=== PATIENT | male | born 1975 | race Caucasian/White ===

== ENCOUNTER 2024-09-18 05:31 | Emergency (ER) | payer OTHER, SELFPAY ==
--- NOTE | ~2024-09-18 | CT_ITS ---
EXAMINATION: CT abdomen pelvis w con DATE: 09/18/2024 06:33 INDICATION: Abdomen pain TECHNIQUE: Computed tomography (CT) of the abdomen and pelvis was performed with 100 cc Omnipaque 350 intravenous contrast. The dose-length product was 715.27 mGy-cm. Automated exposure control and iter ative reconstruction technique were employed. COMPARISON: None. FINDINGS: Lung bases unremarkable. Heart size normal. Fatty infiltration of the liver. The spleen, pa ncreas, adrenal glands and left kidney are unremarkable. There is a 4 mm right UVJ stone with mild hy dronephrosis. There is an asymmetric right renal nephrogram, consistent with obstruction. Punctate no nobstructing right renal stone. Gallbladder is present. Nonobstructive bowel gas pattern. Normal appe ndix. No abnormal pelvic masses or fluid collections. No significant vascular abnormality. No lymphad enopathy. Mild lumbar spondylosis. IMPRESSION: 1. Right UVJ stone measuring 4 mm with mild hydronephrosis. 2: Right nephrolithiasis. Reviewed, dictated and finalized at location A.
--- OUTSIDE RECORDS SUMMARY | 2024-09-18 05:33 | XMS_ITS | Clinical Summary ---
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 Assessment & Plan (07/28/2020 10:34 AM CDT): Continues to use regularly, mostly situational as he lives in house with chronic use Patient considering intensive outpatient Continue to encourage patient to engage with care to help with absence Encouraged patient to look for save housing in order to reduce risk of continued use or relapse Assessment & Plan (07/02/2020 9:32 AM CDT): Stable, improving Patient reports he no longer has desire to use amphetamines, methamphetamines are used due to availability Discussed with patient differences between physical, psychological dependence as well as patient habits and habitual use Discussed with patient beginning to identify habitual use, which triggers use and how to break cycle of habitual use Patient agreeable and will continue to monitor and work with recovery resources including group sessions at [facility] Assessment & Plan (06/30/2020 3:25 PM CDT): Stable, not well controlled Patient continues to regularly use amphetamines, lives in house for amphetamine use is present Encouraged patient to continue to work on cessation, possibly moving to clean living At this time patient is not ready to make complete change of final as commitment Will continue to monitor continue to address as available Assessment & Plan (06/11/2020 1:44 PM CDT): Not well controlled, continues to have regular use of amphetamines, and lives in housing that has regular use of methamphetamines Encouraged patient to look for new housing as well as consider other alternatives such as residential treatment program, at this time patient is not interested in residential treatment Will continue to support patient and evaluate for treatment options Patient is still in pre contemplative changed, decision to remain in program is mostly based upon outside implants, drug court, encouraged patient to continue to evaluate personal changes who will help self motivated to remain sober Assessment & Plan (05/28/2020 12:43 PM CDT): Not well controlled, continues to use several times per week, still places himself in situations that are high risk of use Patient is not started antidepressant and, encouraged patient to start medication in order to reduce cravings in better control mood which then may control amphetamine use disorder Will continue to monitor encourage counseling, as well as finding group sessions back and help support patient Encouraged patient to spend more time with sober friends who can help him with his goal of sobriety Assessment & Plan (05/18/2020 2:15 PM CDT): -patient currently in weekly counseling and group sessions through [facility] -will give trial of bupropion for depression -may require focused counseling regarding trigger and depression (started using after divorce); will follow-up with counselor to ensure patient has all appropriate resources Dysthymia 05/18/2020 Assessment & Plan (07/28/2020 10:35 AM CDT): Stable, well controlled on bupropion Continue therapy Assessment & Plan (07/02/2020 9:32 AM CDT): Stable, well controlled, patient stopped taking bupropion as he in on g depression Continue to monitor and encourage use of antidepressant if needed at future date Assessment & Plan (06/30/2020 3:25 PM CDT): Stable, improving though patient has mildly flat affect, patient is engaged in discussion Patient reports his mood is improving and feels better about himself while on bupropion 75 mg b.i.d. Assessment & Plan (06/11/2020 1:44 PM CDT): Patient reports that his mood is generally well Would like to continue with bupropion 75 mg b.i.d. Assessment & Plan (05/28/2020 12:44 PM CDT): Stable, not well controlled Discussed with patient that dysthymia may be related to amphetamine withdrawal as well as general dysthymia Bupropion started for depression Encouraged patient to start medication, described patient had to take it every day twice daily or have best affect Assessment & Plan (05/18/2020 2:17 PM CDT): Start bupropion for depression Immunizations Immunization Administration Dates Next Due Influenza, Unspecified 02/07/2020(Deferr ed: Patient Refused),02/07/2020(Deferred: Patient Refused),02/07/2020(Deferred: Patient Refused),02/07/2020(Deferred: Patient Refused),02/07/2020(Deferred: Patient Refused),02/06/2019(Deferred: Patient Refused),02/06/2019(Deferred: Patient Refused),02/06/2019(Deferred: Patient Refused),02/06/2019(Deferred: Patient Refused),02/06/2019(Deferred: Patient Refused) Pfizer SARS-CoV-2 Monovalent Vaccination (12+ Yrs) PURPLE 06/16/2020 Tdap 02/04/2020 Family History Medical History Relation Name Comments No Known Problems Father No Known Problems Mother Relation Name Status Comments Father Alive Mother Alive Social History Tobacco Use Types Packs/Day Years Used Date Smoking Tobacco: Every Day Cigarettes Smokeless Tobacco: Never Tobacco Cessation:Ready to Q uit: No; Counseling Given: Yes Alcohol Use Standard Drinks/Week Comments Not Currently 0 (1 standard drink = 0.6 oz pur e alcohol) PHQ-2 Answer Date Recorded PHQ-2 Total Score (If total score is 3 or more points, staff should administer the PHQ-9) 0 07/02/2020 Personal Safety Answer Date Recorded Getting School Help Needed Not on file 04/01 Sex and Gender Information Value Date Recorded Sex Assigned at Not on file Legal Sex Male 10:38 PM [employer] Gender Identity Not on file Sexual Orientation Not on file Obstetrics History Last Filed Vital Signs Vital Sign Reading Time Taken Comments Blood Pressure 118/74 07/02/2020 9:09 AM CDT Pulse 81 07/02/2020 9:09 AM CDT Temperature 36.4 C (97.6 F) 07/02/2020 9:09 AM CDT Respiratory Rate 18 05/14/2020 5:36 PM CDT Oxygen Saturation 98% 07/02/2020 9:09 AM CDT Inhaled Oxygen Concentration - - Weight 83.5 kg (184 lb) 07/02/2020 9:09 AM CDT Height 182.9 cm (6') 07/02/2020 9:09 AM CDT Body Mass Index 24.95 07/02/2020 9:09 AM CDT Plan of Treatment Health Maintenance Due Date Last Done Comments Colon Cancer Screening-Colonoscopy 1975 Hepatitis B Screening 02/19/1994 Regular Well Visit/Exam 18-64 02/19/1994 Pneumococcal vaccine <65 (1 of 2 - PCV) 02/19/1995 Depression Screening 07/02/2021 07/02/2020, 06/04/2020, 05/18/2020, Additional history exists Covid-19 Vaccine (2 - 2023-2 5 season) 2023 06/16/2020 Influenza Vaccine (#1) 2024 DTaP/Tdap/Td Vaccine (2 - Td or Tdap) 02/03/2030 02/04/2020 Hepatitis C Screening Completed 10/09/2019 Goals Goal Patient Goal Type Associated Problems Recent Progress Patient-Stated? Author Compliance with parole General No change( 021 9:53 AM CDT) No Aliyah Jordan Note: Pt reports being on parole and has been non compliant with stipulations. Pt will abstain from illicit drug use Housing General Yes Aliyah Jordan Note: I need to connect with someone that has a place. 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 Procedures Procedure Name Priority Date/Time Associated Diagnosis Comments HEPATITIS PANEL, ACUTE Add-On 10/09/2019 5:58 PM CDT from Last 3 Months or Most Recently Relevant to Health Maintenance Results * Hepatitis panel, acute (10/09/2019 5:58 PM CDT) Hep A IgM Nonreactive Nonreactive YESSI RITCHIE ([facility]K) Comment: Interpretive Data: If Hep A IgM Ab is reported as Equivocal, a new sample should be drawn in two weeks for testing. Current interpretive data was last revised on 19. Testing performed by: [address] [address] Hep B core IgM Nonreactive Nonreactive C ERNER CHAU ([place]) Comment: Interpretive Data If HepB Core IgM Ab is reported as Equivocal, a new sample should be drawn in two weeks for testing. Current interpretive data was last revised on 19. Testing performed by: [address] [address] Hep C Ab Nonreactive Nonreactive YESSI RITCHIE ([place]) Comment: Interpretive Data Nonreactive: Antibodies to HCV not detected. Does NOT exclude the possibility of recent exposure to HCV. Equivocal: Equivocal for HCV antibodies. Supplemental molecular testing will be automatically performed to determine infection status in accordance with current CDC screening recommendations. Reactive: Positive for HCV antibodies. This may represent current or past HCV infection. Supplemental molecular testing will be automatically performed to determine current infection status in accordance with current CDC screening recommendations. Interpretive data was last revised on 2019. Testing performed by: [address] [address] HepBsAg Nonreactive Nonreactive YESSI RITCHIE ([place]) Comment:Testing performed by : [address] [address] Blood specimen (specimen) 10/09/2019 5:58 PM CDT 10/10/2019 11:48 AM CDT us Daily Suarez MD LAB MICROBIOLOGY - GENERAL ORDERABLES Final Result YESSI RITCHIE ([place]) [address] [facility] [place] [address] from Last 3 Months or Most Recently Relevant to Health Maintenance Insurance [facility] Care Teams Retail Coverage Merchandiser Relationship Specialty Start Date End Date Gianni Olmstead MD [address] [place] [address] PCP - General Family Medicine 05/18/20 Keily Crump Software Test Engineer Addiction Medicine 05/14/20 Aliyah Jordan Software Test Engineer Addiction Medicine 05/14/20
--- OUTSIDE RECORDS SUMMARY | 2024-09-18 05:33 | XMS_ITS | Continuity of Care Document ---
Author Organization [facility] Address [address] [place] [address] [place] [address] Phone Care Team Providers Care Associate Creative Director Name Role Phone Clarence De MD Unavailable Unavailable Allergies, Adverse Reactions, Alerts Substance Reaction Status Criticality No Known Allergies Active No Inform ation Medications Medication Instructions Dosage Effective Dates (start - stop) Status Comments clonidine HCl 0.1 mg tablet take 1 tablet by oral route 2 times every day as needed 0.1 MG - Active PRN for with draw symptoms Procedures Procedure Date PREV VISIT, EST, AGE 18-39 PREV VISIT, NEW, AGE 18-39 Advance Directives Directive Yes / No Effective Date File Name No Information Encounters Encounter Description Practice Location Reason(s) For Visit Diagnoses Date Provider Providers Copied on Encounter PREV VISIT, EST, AGE 18-39 [facility], [address] [place], [place], [id number], [place] tel:[phone] [facility] Physical (chief complaint) Encntr for general adult medical exam w/o abnormal findings Santino Lima. [address], [address], [id number], [place]. tel:[phone] Referring Provider: Clarence De, [address], [place], [place], [id number]. tel:[phone] PREV VISIT, NEW, AGE 18-39 [facility], [address], [place], [place], [id number], [place] tel:[phone] [facility] Physical (chief complaint)a bdominal pain (chief complaint) Routine Medical ExamRoutine Medical Exam Santino Lima. [address], [place], [place], [id number], [place]. tel:[phone] Family History Family Member Type Diagnosis Age At Onset Mother Problem (finding) Alive and well Father Problem (finding) Alive and well Payers Payer name Insurance type Covered constitution party ID Authoriza tion(s) No Information Social History Type Description Quantity Date Captured Comments Alcohol Use Details No Caffeine Use Details Unknown Tobacco Use Status Heavy cigarette smok er (20-39 cigs/day) Smoking Status Heavy tobacco smoker Smoking Tobacco Use Details Cigarette: Years Used 23 Cigarette: 1.25 Packs per day, Pack Year: 28.75 Sex Male Vital Signs Date / Time: Height Weight BMI Pulse Rate Blood Pressure Temperature Respiratory Rate Body Surface Area Head Circumference BMI percentile Pulse Ox Inhaled Ox 4:20 PM 181.86 cm 143.50 lbs 19.6 8 kg/m eter (2) 77 /min 114/75 mm[Hg] 97.2 F 18 /min Chief Complaint And Reason For Visit From encounter dated '05/26/2015 15:00'. Physical (chief complaint). Description: Pt needs annual physical. Pt was cutting grass 2 days ago under the sun and felt tired. Pt went home and started to have acute pain around right shoulder and right arm pain. Pt also has some neck pain as well. Pt denies any chest pain. Pt denies any SOB. Pt feels very dehydrated and he started to drink water and feels better now. Pt has been having nromal urine output. Pt states that drinking water helped his pain. Pt feels slighlty over heated while cutting grass. Pt also states that he has been getting hydrocodone from friend and off street and has been taking it for long time. Pt also tried some oxycodone here and there. Pt takes opioid 3-5 and evelyn etimes 5-8 per day for seveeral years. Pt tried to get off but he is afraid of withdraw symptoms. Pt states that he has some diarrhea and stomach upset when he tries to stop opioid Plan Of Treatment Date Type Action Status Goal Tobacco cessation counseling completed Referral Ordered: Physical Therapy ordered Referral Referred To: Physical Therapy Ordered: Referral: Physical Therapy. Evaluate and treat. ordered Referral Ordered: CT ABDOMEN W/O & W/DYE ordered History Of Present Illness Encounter Date Complaint History Of Prese nt Illness Physical Pt needs annual physical. Pt was cutting grass 2 days ago under the sun and felt tired. Pt went home and started to have acute pain around right shoulder and right arm pain. Pt also has some neck pain as well. Pt denies any chest pain. Pt denies any SOB. Pt feels very dehydrated and he started to drink water and feels better now. Pt has been having nromal urine output. Pt states that drinking water helped his pain. Pt feels slighlty over heated while cutting grass. Pt also states that he has been getting hydrocodone from friend and off street and has been taking it for long time. Pt also tried some oxycodone here and there. Pt takes opioid 3-5 and sometimes 5-8 per day for seveeral years. Pt tried to get off but he is afraid of withdraw symptoms. Pt states that he has some diarrhea and stomach upset when he tries to stop opioid Instructions Date Instruction Additional Infor mation No Information Assessments Type Assessment Date assessment Encntr for general adult medical exam w/o abnormal findings Mental Status Date Cognitive Assessment Orientation - [place] ed to time, place, person, situation.
--- OUTSIDE RECORDS SUMMARY | 2024-09-18 05:33 | XMS_ITS | Patient Health Record ---
Author Organization Formerly [facility] Address [address] [place] [address] Care Team Providers Care Wage Hand Name Role Phone Andre Sow Primary Care Provider [phone] Eric Burger Unavailable [phone] Gertrude Huber Unavailable [phone] Michelle Grider Unavailable [phone] Allergies No Known Allergies Results Component Value Reference Range Notes Hemoglobin A1c CLIA Waived Reviewed date:09/12/2024 11:57:28 AM Interpretation: Performing Lab: Notes/Report: Hemoglobin A1c 5.6 4.0 - 6.4 % Hepatitis B Surface Antigen (HBsAg Screen) Reviewed date:06/19/2024 12:08:25 PM Interpretation: Performing Lab:[facility], [address] [facility], Phone - [phone], Director - [facility] Notes/Report: HBsAg Screen Negative Negative Hepatic Function Panel (7)* Reviewed date:06/19/2024 12:08:14 PM Interpretation: Performing Lab:[facility], [address] [facility], Phone - [phone], Director - [facility] Notes/Report: Protein, Total 7.2 6.0-8.5 g/dL Albumin 4.6 4.1-5.1 g/dL Bilirubin, Total 0.3 0.0-1.2 mg/dL Bilirubin, Direct 0.11 0.00-0.40 mg/dL Alkaline Phosphatase 73 44-121 IU/L AST (SGOT) 35 0-40 IU/L ALT (SGPT) 53 0-44 IU/L Hepatitis C Virus Antibody w /Rflx to Quantitative Real-time PCR ([id number]) Reviewed date:06/19/2024 12:08:36 PM Interpretation: Performing Lab:[facility] [address] [place] [address], Phone - [phone], Director - [facility] Notes/Report: HCV Ab Non Reactive Non Reactive Interpretation: Not infected with HCV unless early or acute infection is suspected (which may be delayed in an immunocompromised individual), or other evidence exists to indicate HCV infection. HIV Screen *HIV 1, 2 Ab, p24 Ag ([id number]) Reviewed date:06/19/2024 12:08:48 PM Interpretation: Performing Lab:[facility] [address] [place], [place] [address], Phone - [phone], Director - [facility] Notes/Report: HIV Ab/p24 Ag Screen Non Reactive Non Reactive HIV-1/HIV-2 antibodies and HIV-1 p24 antigen were NOT detected. There is no laboratory evidence of HIV infection. HIV Negative Rapid Plasma Reagin (RPR) Te st With Reflex to Quantitative RPR and Confirmatory Treponema pallidum Antibodies Reviewed date:06/19/2024 12:08:59 PM Interpretation: Performing Lab:[facility] [address] [place], [place] [address], Phone - [phone], Director - [facility] Notes/Report: RPR Non Reactive Non Reactive Lipid Panel* Reviewed date:06/19/2024 12:08:03 PM Interpretation: Performing Lab:[facility] [address] [place] [address], Phone - [phone], Director - [facility] Notes/Report: Cholesterol, Total 241 100-199 mg/dL Triglycerides 726 0-149 mg/dL HDL Cholesterol 35 >39 mg/dL VLDL Cholesterol Rubén 119 5-40 mg/dL LDL Chol Calc ([facility]) 87 0-99 mg/dL Hemoglobin A1c* Reviewed date:06/19/2024 12:09:20 PM Interpretation: Performing Lab:[facility] [address] [place], [place] [address], Phone - [phone], Director - [facility] Notes/Report: Hemoglobin A1c 6.0 4.8-5.6 % . Prediabetes: 5.7 - 6.4 Diabetes: >6.4 Glycemic control for adults with diabetes: <7.0 Breathalyzer Reviewed date:06/06/2024 10:51:18 AM Interpretation: Performing Lab: Notes/Report: ROSCOE 0.000 12 Panel Urine Drug Screen Reviewed date:06/06/2024 10:53:10 AM Interpretation: Performing Lab: Notes/Report: THC neg ANTONELLA neg MOP (OPI) neg AMP neg MET neg BAR neg BZO neg MDMA neg MTD neg OXY neg PCP neg BUP neg HIV Screen *HIV 1, 2 Ab, p24 Ag ([id number]) Reviewed date:06/11/2024 11:34:00 AM Interpretation:Normal Performing Lab:[facility], [address] [place] [address], Phone - [phone], Director - [facility] Notes/Report: HIV Ab/p24 Ag Screen Non Reactive Non Reactive HIV-1/HIV-2 antibodies and HIV-1 p24 antigen were NOT detected. There is no laboratory evidence of HIV infection. HIV Negative CMP 14 Comprehensive Metabol ic Panel* Reviewed date:06/11/2024 11:34:00 AM Interpretation: Performing Lab:[facility], [address] [place] [address], Phone - [phone], Director - [facility] Notes/Report: Glucose 86 70-99 mg/dL BUN 15 6-24 mg/dL Creatinine 1.07 0.76-1.27 mg/dL eGFR 86 >59 mL/min/1.73 BUN/Creatinine Ratio 14 9-20 Sodium 139 134-144 mmol/L Potassium 5.1 3.5-5.2 mmol/L Chloride 100 96-106 mmol/L Carbon Dioxide, Total 23 20-29 mmol/L Calcium 9.7 8.7-10.2 mg/dL Protein, Total 7.5 6.0-8.5 g/dL Albumin 4.6 4.1-5.1 g/dL Globulin, Total 2.9 1.5-4.5 g/dL Bilirubin, Total 0.4 0.0-1.2 mg/dL Alkaline Phosphatase 92 44-121 IU/L AST (SGOT) 35 0-40 IU/L ALT (SGPT) 51 0-44 IU/L CBC With Differential/Platel et* Reviewed date:06/11/2024 11:34:00 AM Interpretation:Normal Performing Lab:[facility], [address] [facility], Phone - [phone], Director - [facility] Notes/Report: WBC 6.8 3.4-10.8 x10E3/uL RBC 5.36 4.14-5.80 x10E6/uL Hemoglobin 15.7 13.0-17.7 g/dL Hematocrit 47.9 37.5-51.0 % MCV 89 79-97 fL MCH 29.3 26.6-33.0 pg MCHC 32.8 31.5-35.7 g/dL RDW 13.4 11.6-15.4 % Platelets 256 150-450 x10E3/uL Neutrophils 63 Not Estab. % Lymphs 27 Not Estab. % Monocytes 7 Not Estab. % Eos 2 Not Estab. % Basos 1 Not Estab. % Neutrophils (Absolute) 4.3 1.4-7.0 x10E3/uL Lymphs (Absolute) 1.8 0.7-3.1 x10E3/uL Monocytes(Absolute) 0.5 0.1-0.9 x10E3/uL Eos (Absolute) 0.1 0.0-0.4 x10E3/uL Baso (Absolute) 0.0 0.0-0.2 x10E3/uL Immature Granulocytes 0 Not Estab. % Immature Grans (Abs) 0.0 0.0-0.1 x10E3/uL QuantiFERON-TB Gold Plus ([id number]) Reviewed date:06/11/2024 11:34:00 AM Interpretation:Normal Performing Lab:[facility], [address] [facility], Phone - [phone], Director - [facility] Notes/Report: QuantiFERON Incubation Incubation performed. QuantiFERON-TB Gold Plus Negative Negative No response to M tuberculosis antigens detected. Infection with M tuberculosis is unlikely, but high risk individuals should be considered for additional testing (ATS/IDSA/CDC Clinical Practice Guidelines, 2017). The reference range is an Antigen minus Nil result of <0.35 IU/mL. Chemiluminescence immunoassay methodology QuantiFERON Criteria QuantiFERON-TB Gold Plus is a qualitative indirect test for M tuberculosis infection (including disease) and is intended for use in conjunction with risk assessment, radiography, and other medical and diagnostic evaluations. The QuantiFERON-TB Gold Plus result is determined by subtracting the Nil value from either TB antigen (Ag) value. The Mitogen tube serves as a control for the test. QuantiFERON TB1 Ag Value 0.03 QuantiFERON TB2 Ag Value 0.04 QuantiFERON Nil Value 0.17 QuantiFERON Mitogen Value >10.00 Reason For Referral No Information Social History Tobacco Use: Social History Observation Description Date Details (start date - stop date) Never Smoker NA - NA PRAPARE Question Answer Notes Date Completed/Updated: 05/20/2024 What is your current housing situation? I have h ousing Are you worried about losing your housing? No What is the highest level of school that you have finished? 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 Check all that apply I do not have problems meeting my needs Has lack of transportation k ept you from medical appointments, meetings, work or from getting things needed for daily living? No How often do you see or talk to people that you care about and feel close to? (For example: talking to friends on the phone, visiting friends or family, going to yarsanism or club meetings) More than 5 times a week How stressed are you? Stress is when someone feels tense, nervous, anxious, or can\t sleep at night because their mind is troubled A little bit In the past year have you sp ent more than 2 nights in a row in a senior care, custodial, mcfp center, or juvenile correctional facility? No Are you a refugee? No What country are you from? [place] Do you feel physically and e motionally safe where you currently live? Yes In the past year, have you b een afraid of your partner or ex-partner? No PRAPARE Score: 2 Tobacco Control (Standard) Question Answer Notes Tobacco use: Nonsmoker Problems Problem Type SNOMED Code ICD Code Onset Dates Problem Status W/U Status Risk Notes Problem Hyperlipidemia (12959052) Hyperlipidemia (E78.5) Active confirmed Problem Overweight (233599088) Over weight (E66.3) Active confirmed Problem Methamphetamine abuse (827270449) Methamphetamine abuse, episodic (F15.10) Active confirmed Vital Signs Heart Rate 74 /min 09/12/2024 Temperature 97.9 degrees Fahrenheit 06/06/2024 Respiratory Rate 16 /min 09/12/2024 Blood pressure diastolic 90 mm Hg 09/12/2024 Oximetry 97 % 09/12/2024 Height 71 in 09/12/2024 Blood pressure systolic 132 mm Hg 09/12/2024 Weight 220.6 lbs 09/12/2024 BMI 30.76 kg/m2 09/12/2024 Encounters Encounter Location Date Provider Diagnosis [facility] [address] [place] [address] 06/06/2024 Eric Burger Routine general medical examination at a health care facility Z00.00 and Over weight E66.3 [facility] [address] [place] [address] 06/06/2024 Gertrude Jones abus e, episodic F15.10 [facility] [address] [place] [address] 06/17/2024 Andre Sow Abnormal liver enzym es R74.8 ; Exposure to potential infection Z20.9 ; Hyperlipidemia E78.5 ; Screening for diabetes mellitus Z13.1 ; Screening for colon cancer Z12.11 and Former smoker Z87.[address] [address] 09/12/2024 Andre Sow Impaired glucose tolerance R73.02 ; Hyperlipidemia E78.5 ; Screening for colon cancer Z12.11 and Over weight E66.[address] [address] 01/16/2024 Michelle Grider [address] [address] 05/21/2024 Andre Sow Assessments Encounter Date Diagnosis (ICD Code) Assessment Notes Treatment Notes Treatment Clinical Notes Section Notes 06/17/2024 Abnormal liver enzymes (ICD-10 - R74.8) 09/12/2024 Impaired glucose tolerance (ICD-10 - R73.02) SENT INFO ON MEDITERRANEAN DIET FROM [employer] AND [employer]. DISCUSSED DIET AND EXERCISE. 06/17/2024 Exposure to potential infection (ICD-10 - Z20.9) 09/12/2024 Hyperlipidemia (ICD-10 - E78.5) 06/06/2024 Routine general medical examination at a health care facility (ICD-10 - Z00.00) Admit to the Mental Health/Crisis Residential Unit and initiate standing/protocol orders: The following PRN medications may be self-administered by patients under the supervision of approved staff or administered by nursing staff: Ibuprofen 200mg, 2-4 tablets by mouth (with food) every 6 hours as needed for pain (unless on lithium). (NOTE: Ibuprofen and acetaminophen may be given together, but alternating is recommended for continuous pain relief. Guaifenesin 400 mg, 1 tablet by mouth every four hours as needed for cough and chest congestion (take with large glass of water). Loratadine 10 mg, 1 tablet by mouth daily as needed for allergies, watery itchy eyes, or sinus drainage. Throat Lozenges, up to 4 tablets by mouth every three to four hours as needed for sore throat. Antacid tablets, 1-2 tablets by mouth every one to two hours as needed for indigestion or heart burn. If the client prefers liquid, could use: Liquid Antacid : 1 ounce by mouth up to four times daily as needed for indigestion or heartburn Omeprazole 20mg, 1 capsule by mouth once daily for 14 days for frequent heartburn (frequent heartburn is more than 2 episodes per week). Do not exceed 14 days. Do not give to client already taking a proton-pump inhibitor: esomeprazole (Nexium), lansoprazole (Prevacid), pantoprazole (Protonix), rabeprazole (Aciphex), dexlansoprazole (Dexilant) Zofran ODT disintegrating (under the tongue) 4 mg, 1-2 tablets every 8 hours as needed for nausea/vomiting. Milk of Magnesia (MOM): 1 ounce (30 milliliters) by mouth every day as needed for constipation. OR Miralax: Stir and fully dissolve 17 grams (1 packet or 1 capful to measured line) in any 4 to 8 ounces of beverage then drink once daily for constipation. Do not use for more than 7 days. OR Docusate 100 mg, 1 capsule twice daily as needed for constipation Hydrocortisone 1% Cream, apply topically (to the skin) to the affected area up to three times daily as needed for itching or inflammation (avoid eyes and genitals). 2% Antifungal Cream, apply topically (to the skin) as directed as needed to affected areas for athlete's foot or jock itch. Triple Antibiotic Ointment, apply topically (to the skin) up to three times daily as needed for minor cuts and scrapes. Carmex or Chapstick, apply topically (to the skin) as needed for chapped lips and skin. Orajel, apply to affected areas as needed for mouth or tooth pain. Lubricating Eye Drops, instill 1-2 drops to the affected eye(s) as needed for dry/irritated eye(s). Hemorrhoid medications, apply to affected area according to directions as needed for hemorrhoid discomfort and itch. Nix (Permethrin 1%) cream 2 ounces, apply topically (to the skin) as directed as needed for head lice. Sunscreen 30 SPF, Apply to exposed skin prior to exposure to sun. The following PRN medications must be approved by nursing staff before self-administratio n by patients: Diphenhydramine 25 mg, 2 tablets by mouth every 4 hours as needed for allergic reaction or itchy rash. Caution: Do not use hydroxyzine within 4 hours of diphenhydramine and vice versa. Loperamide 2 mg capsules, may give two capsules by mouth for the initial dose, followed by one capsule up to 3 times a day as needed for diarrhea. Acetaminophen 500 mg, 1 - 2 tablets by mouth every six hours as needed for pain. (NOTE: Ibuprofen and acetaminophen may be given together, but alternating is recommended for continuous pain relief). Oxygen-May administer oxygen 2L/min via nasal cannula if O2 saturation is less than 92%, AND client complains of shortness of breath. Target O2 saturation is 94-98%. Caution: Remember too much oxygen can be detrimental to a client with COPD. Oxygen is a drug and should be delivered by trained staff only. Nurses may remove superficial splinters and sutures from skin lacerations. May apply gauze or bandages to any weeping wounds. Contact nursing if there is pus, a foul odor, increased pain/redness/swell ing, or if soaking through bandages. 06/06/2024 Methamphetamine abuse, episodic (ICD-10 - F15.10) 06/17/2024 Hyperlipidemia (ICD-10 - E78.5) 06/06/2024 Over weight (ICD-10 - E66.3) 06/17/2024 Screening for diabetes mellitus (ICD-10 - Z13.1) 09/12/2024 Screening for colon cancer (ICD-10 - Z12.11) 09/12/2024 Over weight (ICD-10 - E66.3) 06/17/2024 Screening for colon cancer (ICD-10 - Z12.11) 06/17/2024 Former smoker (ICD-10 - Z87.891) 06/06/2024 Other Clinician met w ith client to assess needs for residential services. Clinician gathered information regarding historical presentation of mental health and substance use symptoms including withdrawal, HIV Risk assessment, psychiatric hospitalization history and presenting concern. Clinician conducted PHQ9 and CSSRS assessments as well as social drivers of health screening for the purposes of identifying additional service needs. Plan Of Treatment Next Appt Details Provider Name:Andre Sow , 12/16/2024 10:00:00 AM, [address] [facility] [address] [place], [address], Insurance Providers Payer Name Payer Address Payer Phone Subscriber Number Group Number Insured Name Patient Relationship to Insured Coverage Start Date Coverage End Date MEDICAID [address] [place] [phone] [id number] Kyler Lucas Self - patient is the insured [address] [phone] [id number] Kyler Lucas Self - patient is the insured 5 Medical (General) History Surgical History Surgery Date(Month/Year) hernia repair 1982 Hospitalization History Reason Date(Month/Year) SI 1993
[2024-09-18 05:37] VITALS: BP 139/98; PULSE 88; RESP 20; TEMP 36.6; O2SAT 98
[2024-09-18 05:54] LABS: Hematocrit 42.5 % (42.0-52.0); Hemoglobin 14.5 g/dL (14.0-18.0); Immature Granulocyte Percent A 0.1 % (0-0.5); Lymphocytes Absolute Auto 2.33 K/mm3 (0.9-3.2); Mean Corpuscular HGB Conc 34.1 g/dl (32-36); Mean Corpuscular Hemoglobin 29.8 pg (26-34); Mean Corpuscular Volume 87.3 fl (80-100); Nucleated Red Blood Cells Absolute Auto 0.000 K/mm3 (0.0-0.012); Nucleated Red Blood Cells Perc 0.0 % (0.0-0.2); Platelet Count Result 257 k/mm3 (150-375); Red Blood Count 4.87 M/mm3 (4.6-6.20); White Blood Count 7.0 K/mm3 (4.5-10.0)
--- NOTE | 2024-09-18 06:00 | ED_ITS ---
HPI - Abdominal Pain General Chief Complaint: Abdominal Pain <Maximiliano Dill MD - Last Filed: 09/19/24 05:58> Stated Complaint: R lower abdominal pain <Maximiliano Dill MD - Last Filed: 09/19/24 05:58> Time Seen by Provider: 09/18/24 05:39 <Maximiliano Dill MD - Last Filed: 09/19/24 05:58> History of Present Illness HPI narrative: 49-year-old male with no chronic medical problems presenting to the emergency department with right lower quadrant sharp pain that started yesterday. Has been having some nausea. States that he is trying to urinate but is unable to. Applying pressure to the area makes it better. No urinary history, no kidney stone history, no surgical history. Was otherwise in his normal state of health. Denies any traumatic injuries. No fever chills. No vomiting or constipation. Has not taken anything for symptom control. < Maximiliano Dill MD - Last Filed: 09/19/24 05:58> Related Data Allergies/Adverse Reactions: Allergies Allergy/AdvReac Type Severity Reaction Status Date / Time No Known Allergies Allergy Unverified 01/06/14 10:25 <Maximiliano Dill MD - Last Filed: 09/19/24 05:58> Review of Systems 2 Review of Systems: As reviewed above in HPI <Maximiliano Dill MD - Last Filed: 09/19/24 05:58> Exam 2 Narrative: GENERAL: Uncomfortable appearing, not any acute distress HEAD: [Normocephalic, atraumatic.] EYES: [PERRLA and EOMI.] ENT: Nares clear, no rhinorrhea or epistaxis. Mucous membranes moist. NECK: Supple. CHEST: [Clear to auscultation. No respiratory distress.] HEART: [Regular rate and rhythm]. No murmur heard. [Normal peripheral pulses.] ABDOMEN: Distended but soft, tenderness to palpation in the suprapubic region, [No rigidity or guarding] EXTREMITIES: Normal range of motion. [No edema.] SKIN: Warm, dry, no rash. NEURO: [No focal deficits]. Alert and oriented [x3.] PSYCH: [Normal mood and affect.] <Maximiliano Dill MD - Last Filed: 09/19/24 05:58> Course Course Emergency Course: ZYCH: Patient signed out pending CT abdomen pelvis and urinalysis. CT showed a 4mm kidney stone at the UVJ. Urine not indicative infection. White count normal. Pain was controlled in the emergency department. Patient will be discharged with appropriate medications and urology follow-up. Given return precautions. <Maximiliano Dill MD - Last Filed: 09/19/24 05:58> ZYCH: Patient signed out pending CT abdomen pelvis and urinalysis. CT showed a 4mm kidney stone at the UVJ. Urine not indicative infection. White count normal. Pain was controlled in the emergency department. Patient will be discharged with appropriate medications and Neurology follow-up. Given return precautions. <Carlos Moreno MD - Last Filed: 09/18/24 07:48> Vital Signs Vital signs: Vital Signs Temperature 36.6 C 09/18/24 05:37 Pulse Rate 88 09/18/24 05:37 Respiratory Rate 20 09/18/24 05:37 Blood Pressure 139/98 H 09/18/24 05:37 Pulse Oximetry 98 09/18/24 05:37 Temperature 36.6 C 09/18/24 06:06 Pulse Rate 84 09/18/24 08:34 Respiratory Rate 17 09/18/24 08:34 Blood Pressure 134/87 09/18/24 08:34 Pulse Oximetry 96 09/18/24 08:34 <Maximiliano Dill MD - Last Filed: 09/19/24 05:58> Vital Signs Temperature 36.6 C 09/18/24 05:37 Pulse Rate 88 09/18/24 05:37 Respiratory Rate 20 09/18/24 05:37 Blood Pressure 139/98 H 09/18/24 05:37 Pulse Oximetry 98 09/18/24 05:37 Temperature 36.6 C 09/18/24 06:06 Pulse Rate 84 09/18/24 08:34 Respiratory Rate 17 09/18/24 08:34 Blood Pressure 134/87 09/18/24 08:34 Pulse Oximetry 96 09/18/24 08:34 <Carlos Moreno MD - Last Filed: 09/18/24 07:48> MDM - Abdominal Pain MDM Narrative Medical decision making narrative: 49-year-old male with no chronic medical problems presenting to the emergency department with right lower quadrant sharp pain that started yesterday. Has been having some nausea. States that he is trying to urinate but is unable to. Applying pressure to the area makes it better. No urinary history, no kidney stone history, no surgical history. Was otherwise in his normal state of health. Denies any traumatic injuries. No fever chills. No vomiting or constipation. Has not taken anything for symptom control. Patient is uncomfortable appearing. Normal vital signs here without any significant tachycardia, fever, hypoxia blood pressure concerns. Distended abdomen but soft and mildly tender in the suprapubic region. Given his inability urinate and distended abdomen with suprapubic fullness considerations are for acute urinary retention, bladder spasm, urinary tract infection, kidney stone, intra-abdominal pathology such as appendicitis or intra-abdominal infection less likely but possible. Laboratory studies obtained as well as urinalysis. Bladder scan ordered. Was given morphine for analgesia. Bladder scan showed no significant urinary retention. Laboratory studies so far reassuring without any leukocytosis or significant electrolyte derangements. Normal GFR. Normal glucose. Mildly elevated LFTs. CT scan with contrast obtained. Fluid hydration ordered. Patient care signed out to oncoming ER physician pending completion of workup and final disposition based on results. < Maximiliano Dill MD - Last Filed: 09/19/24 05:58> Medical Records Attestation: I reviewed the patient's medical records. <Maximiliano Dill MD - Last Filed: 09/19/24 05:58> Lab Data Attestation: I reviewed the patient's lab results. <Maximiliano Dill MD - Last Filed: 09/19/24 05:58> Result diagrams: 09/18/24 05:44 09/18/24 05:44 <Maximiliano Dill MD - Last Filed: 09/19/24 05:58> Labs: Lab Results 09/18/24 09/18/24 Range/Units 05:44 06:57 WBC 7.0 (4.5-10.0) K/mm3 RBC 4.87 (4.6-6.20) M/mm3 Hgb 14.5 (14.0-18.0) g/dL Hct 42.5 (42.0-52.0) % MCV 87.3 (80-100) fl MCH 29.8 (26-34) pg MCHC 34.1 (32-36) g/dl RDW 12.5 (11.5-14.5) % Plt Count 257 (150-375) k/mm3 MPV 9.4 (7.4-10.4) fl Immature Gran % (Auto) 0.1 (0-0.5) % Neut % (Auto) 53.6 (45.5-73.1) % Lymph % (Auto) 33.2 (18.3-44.2) % [place] % (Auto) 9.7 H (2.6-8.5) % Eos % (Auto) 2.8 (0-4.4) % Baso % (Auto) 0.6 (0.2-1.2) % Lymph # (Auto) 2.33 (0.9-3.2) K/mm3 [place] # (Auto) 0.7 H (0.1-0.6) K/mm3 Eos # (Auto) 0.2 (0-0.3) K/mm3 Baso # (Auto) 0.0 (0.0-0.1) K/mm3 Abs Immat Gran (auto) 0.01 (0.00-0.031) K/mm3 Absolute Neuts (auto) 3.8 (1.3-6.7) K/mm3 Absolute Nucleated RBC 0.000 (0.0-0.012) K/mm3 Nucleated RBC % 0.0 (0.0-0.2) % Sodium 139 (137-145) mmol/L Potassium 4.0 (3.4-5.0) mmol/L Chloride 107 (98-107) mmol/L Carbon Dioxide 20 L (22-30) mmol/L Anion Gap 12 (4-12) mmol/L BUN 20 (9-20) mg/dL Creatinine 1.25 (0.7-1.3) mg/dL Estim Creat Clear Calc 71 ml/min Estimated GFR > 60 (59 - ) Glucose 113 H (65-110) mg/dL Calcium 9.7 (8.4-10.2) mg/dL Total Bilirubin 0.5 (0.2-1.3) mg/dL AST 60 H (17-59) U/L ALT 55 H (6-50) U/L Alkaline Phosphatase 73 (38-126) U/L Total Protein 7.8 (6.3-8.2) g/dL Albumin 4.5 (3.5-5.1) g/dL Urine Color Yellow (Yellow) Urine Appearance Clear (Clear) Urine pH 5.5 (5.0-9.0) Ur Specific Cru[place] > 1.045 H (1.001-1.035) Urine Protein 1+ H (Negative) mg/dL Urine Glucose (UA) Negative (Negative) mg/dL Urine Ketones Trace H (Negative) mg/dL Ur Blood (Man) Non-hemolyzed trace (Negative) Urine Nitrate Negative (Negative) Urine Bilirubin Negative (Negative) Urine Urobilinogen 0.2 (<2.0) mg/dL Leukocyte Esterase Rfl Negative (Negative) ZOHAIB/UL Urine RBC 0-2 (0-2) /hpf Urine WBC 0-5 (0-3) /hpf Ur Squamous Epith Cells None seen (Few) /hpf Urine Bacteria None seen /hpf Urine Casts 0-2 <Maximiliano Dill MD - Last Filed: 09/19/24 05:58> Lab Results 09/18/24 09/18/24 Range/Units 05:44 06:57 WBC 7.0 (4.5-10.0) K/mm3 RBC 4.87 (4.6-6.20) M/mm3 Hgb 14.5 (14.0-18.0) g/dL Hct 42.5 (42.0-52.0) % MCV 87.3 (80-100) fl MCH 29.8 (26-34) pg MCHC 34.1 (32-36) g/dl RDW 12.5 (11.5-14.5) % Plt Count 257 (150-375) k/mm3 MPV 9.4 (7.4-10.4) fl Immature Gran % (Auto) 0.1 (0-0.5) % Neut % (Auto) 53.6 (45.5-73.1) % Lymph % (Auto) 33.2 (18.3-44.2) % [place] % (Auto) 9.7 H (2.6-8.5) % Eos % (Auto) 2.8 (0-4.4) % Baso % (Auto) 0.6 (0.2-1.2) % Lymph # (Auto) 2.33 (0.9-3.2) K/mm3 [place] # (Auto) 0.7 H (0.1-0.6) K/mm3 Eos # (Auto) 0.2 (0-0.3) K/mm3 Baso # (Auto) 0.0 (0.0-0.1) K/mm3 Abs Immat Gran (auto) 0.01 (0.00-0.031) K/mm3 Absolute Neuts (auto) 3.8 (1.3-6.7) K/mm3 Absolute Nucleated RBC 0.000 (0.0-0.012) K/mm3 Nucleated RBC % 0.0 (0.0-0.2) % Sodium 139 (137-145) mmol/L Potassium 4.0 (3.4-5.0) mmol/L Chloride 107 (98-107) mmol/L Carbon Dioxide 20 L (22-30) mmol/L Anion Gap 12 (4-12) mmol/L BUN 20 (9-20) mg/dL Creatinine 1.25 (0.7-1.3) mg/dL Estim Creat Clear Calc 71 ml/min Estimated GFR > 60 (59 - ) Glucose 113 H (65-110) mg/dL Calcium 9.7 (8.4-10.2) mg/dL Total Bilirubin 0.5 (0.2-1.3) mg/dL AST 60 H (17-59) U/L ALT 55 H (6-50) U/L Alkaline Phosphatase 73 (38-126) U/L Total Protein 7.8 (6.3-8.2) g/dL Albumin 4.5 (3.5-5.1) g/dL Urine Color Yellow (Yellow) Urine Appearance Clear (Clear) Urine pH 5.5 (5.0-9.0) Ur Specific [place] > 1.045 H (1.001-1.035) Urine Protein 1+ H (Negative) mg/dL Urine Glucose (UA) Negative (Negative) mg/dL Urine Ketones Trace H (Negative) mg/dL Ur Blood (Man) Non-hemolyzed trace (Negative) Urine Nitrate Negative (Negative) Urine Bilirubin Negative (Negative) Urine Urobilinogen 0.2 (<2.0) mg/dL Leukocyte Esterase Rfl Negative (Negative) ZOHAIB/UL Urine RBC 0-2 (0-2) /hpf Urine WBC 0-5 (0-3) /hpf Ur Squamous Epith Cells None seen (Few) /hpf Urine Bacteria None seen /hpf Urine Casts 0-2 <Carlos Moreno MD - Last Filed: 09/18/24 07:48> Imaging Data Attestation: I personally reviewed and interpreted this imaging study as follows: < Maximiliano Dill MD - Last Filed: 09/19/24 05:58> Radiologist's impression: ITS Impressions Abdomen/Pelvis CT 09/18/24 06:58 IMPRESSION: 1. Right UVJ stone measuring 4 mm with mild hydronephrosis. 2: Right nephrolithiasis. <Maximiliano Dill MD - Last Filed: 09/19/24 05:58> ITS Impressions Abdomen/Pelvis CT 09/18/24 06:58 IMPRESSION: 1. Right UVJ stone measuring 4 mm with mild hydronephrosis. 2: Right nephrolithiasis. <Carlos Moreno MD - Last Filed: 09/18/24 07:48> Discharge Plan Discharge Clinical Impression: Calculus of ureterovesical junction (UVJ), Right lower quadrant abdominal pain <Maximiliano Dill MD - Last Filed: 09/19/24 05:58> Patient Disposition: Home <Maximiliano Dill MD - Last Filed: 09/19/24 05:58> Condition: Stable <Maximiliano Dill MD - Last Filed: 09/19/24 05:58> Instructions: Antibiotic Form, Kidney Stones (ED) <Maximiliano Dill MD - Last Filed: 09/19/24 05:58> Additional Instructions: You were seen in the emergency department for a kidney stone. Please use Motrin/Tylenol for pain. Use oxycodone for breakthrough pain. Use Zofran for nausea. Use Flomax to help pass the stone. Please follow-up with your Urologist for further management. Please return if you develop severe pain, fevers or intractable nausea and vomiting. <Maximiliano Dill MD - Last Filed: 09/19/24 05:58> Patient Language: Swazi <Maximiliano Dill MD - Last Filed: 09/19/24 05:58> Prescriptions: New ibuprofen 800 mg tablet 800 mg PO TID PRN (Reason: pain) 7 Days Qty: 21 0RF acetaminophen 500 mg tablet 1,000 mg PO TID PRN (Reason: maida) 7 Days Qty: 42 0RF tamsulosin [Flomax] 0.4 mg capsule 0.4 mg PO DAILY Qty: 30 0RF ondansetron 4 mg tablet,disintegrating 4 mg PO Q8H PRN (Reason: nausea and vomiting) Qty: 30 0RF oxycodone 5 mg tablet 5 mg PO Q4H PRN (Reason: pain) Qty: 14 0RF <Maximiliano Dill MD - Last Filed: 09/19/24 05:58> Follow-up/Referrals: PHYSICIAN,CASUALTY UNDERWRITER [Primary Care Provider] - Arnol Osullivan MD [Physician] - 1 Week (Kidney stone) <Maximiliano Dill MD - Last Filed: 09/19/24 05:58>
[2024-09-18 06:06] VITALS: BP 139/98; PULSE 88; RESP 20; TEMP 36.6; O2SAT 98
[2024-09-18 06:13] LABS: Alanine Aminotransferase 55 U/L (6-50); Albumin Level 4.5 g/dL (3.5-5.1); Alkaline Phosphatase 73 U/L (38-126); Anion Gap 12 mmol/L (4-12); Aspartate Amino Transferase 60 U/L (17-59); Bilirubin,Total 0.5 mg/dL (0.2-1.3); Blood Urea Nitrogen 20 mg/dL (9-20); Calcium 9.7 mg/dL (8.4-10.2); Carbon Dioxide 20 mmol/L (22-30); Chloride 107 mmol/L (98-107); Estimated CRCL calculation 71 ml/min; Estimated Glomerular Filt Rate > 60; Glucose 113 mg/dL (65-110); Potassium 4.0 mmol/L (3.4-5.0); Sodium 139 mmol/L (137-145); Total Protein 7.8 g/dL (6.3-8.2)
[2024-09-18] MEDS: MORPHINE SULFATE (*CRX) 4 MG/ML INJ IV PUSH (06:45)
[2024-09-18] MEDS: LACTATED RINGERS 1,000 ML 999 ML IV CONT ×2 (07:05→07:06)
[2024-09-18 07:09] VITALS: BP 151/100; PULSE 87; RESP 20; O2SAT 100
[2024-09-18 07:09] LABS: Add Urine Microscopic? YES; Appearance Urine Clear (Clear); Glucose Urine UA Negative (Negative); Leukocyte Esterase Ur Negative LEU/UL (Negative); Nitrate Urine Negative (Negative); Non Pathogenic Casts 0-2; Specific Grav Ur > 1.045 (1.001-1.035)
--- OUTSIDE RECORDS SUMMARY | 2024-09-18 07:31 | XMS_ITS | Continuity of Care Document ---
Author Organization [facility] Address [address] [place] [address] [place] [address] Phone Care Team Providers Care Station Detective Name Role Phone Clarence De MD Unavailable [...] on Encounter PREV VISIT, EST, AGE 18-39 [facility], [address], [place], [place], [id number], [place] tel:[phone] [facility] Physical (chief complaint) Encntr for general adult medical exam w/o abnormal findings Santino Lima. [address], [address], [place], [id number], [place]. tel:[phone] Referring Provider: Clarence De, [address], [place], [place], [id number]. tel:[phone] PREV VISIT, NEW, AGE 18-39 [facility], [address], [place], [place], [id number], [place] tel:[phone] [facility] Physical (chief complaint)a bdominal pain (chief complaint) Routine Medical ExamRoutine Medical Exam Santino Lima. [address], [place], [place], [id number], [place]. tel:[phone] Family History Family Member Type Diagnosis Age At Onset Mother Problem (finding) Alive and well Father Problem (finding) Alive and well Payers Payer name Insurance type Covered republican ID Authoriza tion(s) No Information Social History [...] completed Referral Ordered: Physical Therapy ordered Referral Ordered: CT ABDOMEN W/O & W/DYE ordered Referral Referred To: Physical Therapy Ordered: Referral: Physical Therapy. Evaluate and treat. ordered History Of Present Illness Encounter Date [...] Mental Status Date Cognitive Assessment Orientation - [place] ed to time, place, person, situation.
--- OUTSIDE RECORDS SUMMARY | 2024-09-18 07:31 | XMS_ITS | Clinical Summary ---
Author Organization [facility] Address [address] [place] [address] Care Team Providers Care Line Palletizer Name Role Phone Unavailable Primary Care Provider Unavailabl e Social History Tobacco Use Types Packs/Day Years Used Date Smoking Tobacco: Never Assessed Sex and Gender Information Value Date Recorded Sex Assigned at Not on file Legal Sex Male 8:27 PM CDT Gender Identity Not on file Sexual Orientation Not on file Plan of Treatment Health Maintenance Due Date Last Done Comments Colorectal Cancer Screening Colonoscopy (10 Years) 1976 Annual Physical 02/19/1979 Hepatitis C 02/19/1994 DTaP, Tdap and Td Vaccines ( 1 - Tdap) 02/19/1995 Hepatitis B Vaccines (1 of 3 - 19+ 3-dose series) 02/19/1995 COVID-19 Vaccine (2023-2 5 season) 2023 Meningococcal B Vaccine Aged Out No l onger eligible based on patient's age to complete this topic Meningococcal Vaccine Aged Out No mireya mikaela eligible based on patient's age to complete this topic Pneumococcal Vaccine: Pediat rics (0 to 5 Years) and At-Risk Patients (6 to 49 Years) Aged Out No longer eligible b ased on patient's age to complete this topic RSV Immunizations Under 20 Months Aged Out No longer eligible based on patient's age to complete this topic
--- OUTSIDE RECORDS SUMMARY | 2024-09-18 07:31 | XMS_ITS | Clinical Summary ---
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 Pt will administrative personal assistant and discuss potential housing. Procedures Procedure Name [...] last revised on 19. Testing performed by: [address] [address] Hep B core IgM Nonreactive Nonreactive C ERNER CHAU ([place]) Comment: Interpretive Data If HepB Core IgM Ab is reported as Equivocal, a new sample should be drawn in two weeks for testing. Current interpretive data was last revised on 19. Testing performed by: [address] [address] Hep C Ab Nonreactive Nonreactive YESSI RITCHIE [...] last revised on 2019. Testing performed by: [address] [address] HepBsAg Nonreactive Nonreactive YESSI RITCHIE ([place]) Comment:Testing performed by : [address] [address] Blood specimen (specimen) 10/09/2019 5:58 PM CDT 10/10/2019 11:48 AM CDT us Daily Suarez MD LAB MICROBIOLOGY - GENERAL ORDERABLES Final Result YESSI RITCHIE ([place]) [facility] Department [place] [address] from Last 3 Months or Most Recently Relevant to Health Maintenance Insurance [facility] PL[facility] [place] [facility] Care Teams Geriatric Nurse Relationship Specialty Start Date End Date Gianni Olmstead MD [address] [place] [address] PCP - General Family Medicine 05/18/20 Keily Crump Analytical Data Miner Addiction Medicine 05/14/20 Aliyah Jordan Analytical Data Miner Addiction Medicine 05/14/20
[2024-09-18] MEDS: ACETAMINOPHEN 500 MG TABLET 1000 MG PO (07:40)
[2024-09-18] MEDS: ONDANSETRON INJ 4 MG/2 ML VIAL IV PUSH (07:40)
[2024-09-18] MEDS: KETOROLAC 15 MG/ML VIAL (*BKC) IV PUSH (07:41)
[2024-09-18 08:34] VITALS: BP 134/87; PULSE 84; RESP 17; O2SAT 96
== END 2024-09-18 08:35 | disposition home or self-care (01) ==
LOC: ANHED 07:29
PROVIDERS: Emergency Provider Student in an Organized Health Care Education/Training Program
DX: N20.0 Calculus of kidney (principal)
CPT/HCPCS: 36415; 74177; 80053; 81001; 85025; 96361; 96374; 96375; 99284; A9270; J1885; J2270; J2405; J7120; Q9967